=== PATIENT | male | born 1980 | race Caucasian/White ===

== ENCOUNTER 2017-09-23 10:08 | Emergency (ER) | payer MEDICAID, OTHER, SELFPAY ==
[~2017-09-23] VITALS: Ht 188 cm; Wt 84.8 kg
[2017-09-23] MEDS ORDERED: SODIUM CHLORIDE 0.9% 1,000 ML IV ONE (10:23)
[2017-09-23] MEDS ORDERED: THIAMINE 100 MG/ML, 2ML IM ONE (10:30)
[2017-09-23] MEDS ORDERED: SODIUM CHLORIDE 0.9% 1,000ML IVBOLUS ONE (10:30)
[2017-09-23] MEDS ORDERED: SODIUM CHLORIDE FLUSH 10ML SYR IVF ONE (10:30)
[2017-09-23] MEDS ORDERED: ONDANSETRON ODT 4 MG PO ONE (10:30)
[2017-09-23] MEDS ORDERED: THIAMINE 100 MG/ML, 2ML ONE (10:31)
[2017-09-23] MEDS ORDERED: LORazepam 2 MG/ML, 1ML ONE ×2 (10:31→11:55)
[2017-09-23] MEDS ORDERED: ONDANSETRON ODT 4 MG ONE (10:31)
[2017-09-23] MEDS: LORazepam 2 MG/ML, 1ML IVPush PRN ×3 (10:42→11:57)
[2017-09-23 10:50] LABS: ALANINE AMINOTRANSFERASE 140 U/L (12-78); ALBUMIN 4.3 g/dL (3.4-5.0); ANION GAP 19 mmol/L (5-15); CALCIUM 9.6 mg/dL (8.5-10.1); CHLORIDE 88 mmol/L (98-107); CREATININE 1.14 mg/dL (0.7-1.3)
[2017-09-23 10:51] LABS: INTERNATIONAL NORMALIZED RATIO 1.2 (0.93-1.1); PROTHROMBIN TIME 12.4 Seconds (9.6-11.5)
[2017-09-23 10:52] LABS: ALKALINE PHOSPHATASE 144 U/L (45-117); BILIRUBIN,TOTAL 3.4 mg/dL (0.2-1.0)
[2017-09-23 10:59] LABS: MEAN CORPUSCULAR HEMOGLOBIN 34.9 pg (27.5-34.5); MEAN CORPUSCULAR HGB CONC 35.7 g/dL (33.2-36.2); MEAN CORPUSCULAR VOLUME 97.9 fL (81-97); MEAN PLATELET VOLUME 8.6 fL (7.4-10.4); PLATELET COUNT 86 x10^3/uL (130-400); RED BLOOD COUNT 5.04 x10^6/uL (4.38-5.82); RED CELL DISTRIBUTION WIDTH 13.3 % (9.4-14.8)
[2017-09-23 11:00] LABS: MD YES
[2017-09-23 11:02] LABS: BAND#(MANUAL) 0.27 x10^3/uL; BANDS%(MANUAL) 3 % (0-7); EOS#(MANUAL) 0.09 x10^3/uL (0.0-0.4); EOS% (MANUAL) 1 % (1-7); LYMPHS% (MANUAL) 9 % (22-44); MONOS#(MANUAL) 0.71 x10^3/uL (0.3-2.7); MONOS% (MANUAL) 8 % (2-9); SEG#(MANUAL) 7.03 x10^3/uL (1.8-6.8); SEGS% (MANUAL) 79 % (42-75)
[2017-09-23 11:03] LABS: <PLATELET ESTIMATE> DECREASED; ANISOCYTOSIS 1+
[2017-09-23 11:04] LABS: <PLT MORPHOLOGY> NORMAL PLT MORPH
[2017-09-23 13:06] VITALS: BP 118/66
== END 2017-09-23 13:11 | disposition home or self-care (01) ==
LOC: ED 12:00
DX: K70.10 Alcoholic hepatitis without ascites (principal); F10.10 Alcohol abuse, uncomplicated; F17.200 Nicotine dependence, unspecified, uncomplicated
CPT/HCPCS: 36415; 80053; 83690; 85025; 85610; 96361; 96372; 96374; 96376; 99284; J2060; J3411; J7030; Q0162